=== PATIENT | female | born 2000 | race Two or more races ===

== ENCOUNTER 2024-04-02 21:53 | Emergency (ER) | payer MEDICAID, OTHER ==
[~2024-04-02] VITALS: Ht 162.6 cm; Wt 72.0 kg
[2024-04-02] MEDS: SODIUM CHLORIDE 0.9% 1,000 ML IVB ONE (22:15)
--- NOTE | 2024-04-02 22:20 | ED.PDOC ---
Altered Mental Status HPI Comments 23 year old female came to ER due to alcohol intoxication. Patient was dropped off in front of the ER, intoxicated with alcohol and actively vomiting. No further information could be taken from her at this time. Chief Complaint: ETOH Time Seen by MD: 22:19 Reviewed Notes: Nurses Notes Allergies: Coded Allergies: NO KNOWN ALLERGIES (Unverified , 04/02/24) Information Source: Patient Mode of Arrival: Wheelchair Severity: Unable to Care for Self Timing: Minutes Duration: Since onset Quality: Decreased Alertness, Change in Behavior, Confusion Recent: Medication/Drug Abuse, None Past Medical History PAST MEDICAL HISTORY: Pt Confused Surgical History: Pt Confused [employer]ELOP[employer] MANAGER History: Pt Confused Family History Family History: Pt Confused Social History Smoker: Pt Confused Alcohol: Heavy Drugs: Pt Confused Lives In: Pt Confused Unable to Obtain due to: Altered Mental Status, Other (intoxicated with alcohol) Physical Exam General Appearance: No Apparent Distress, Normal HEENT: Normal ENT Inspection, Pharynx Normal, TMs Normal Neck: Full Range of Motion, Non-Tender, Normal, Normal Inspection Respiratory: Chest Non-Tender, Lungs Clear, No Accessory Muscle Use, No Respiratory Distress, Normal Breath Sounds Cardiovascular: No Edema, No JVD, No Murmur, No Gallop, Normal Peripheral Pulses, Regular Rate/Rhythm Breast Exam: Deferred Gastrointestinal: No Organomegaly, Non Tender, No Pulsatile Mass, Normal Bowel Sounds, Soft Genitalia: Deferred Pelvic: Deferred Rectal: Deferred Extremities: No calf tenderness, Normal capillary refill, Normal inspection, Normal range of motion, Non-tender, No pedal edema Musculoskeletal : Apperance: Normal Neurologic: Alert, lifestyle block farmer II-XII nml as Tested, No Motor Deficits, Normal Affect, Normal Mood, No Sensory Deficits Cerebellar Function: Normal Reflexes: Normal Skin: Dry, Normal Color, Warm Lymphatic: No Adenopathy Was a procedure done? Was a procedure done?: No Differential Diagnosis (ALOC) Differential Diagnosis: Encephalopathy, Drug Overdose, ETOH Intoxication X-Ray, Labs, Meds, VS Vital Signs Date Time Temp Pulse Resp B/P (MAP) Pulse Ox O2 Delivery O2 Flow Rate FiO2 04/03/24 00:01 93 22 97 Room Air* 0 21 04/02/24 23:13 98.8 93 22 113/76 (88) 97 98.8 04/02/24 21:55 97.2 95 16 110/55 (73) 99 Lab Test 04/02/24 22:20 Range/Units White Blood Count 12.7 H 4.4-10.8 10^3/uL Red Blood Count 4.89 4.0-5.20 10^6/uL Hemoglobin 15.5 12.2-16.2 g/dL Hematocrit 46.2 H 36.0-46.0 % Mean Corpuscular Volume 94.3 80.0-100.0 fL Mean Corpuscular Hemoglobin 31.6 28.0-32.0 pg Mean Corpuscular Hemoglobin Concent 33.5 32.0-36.0 g/dL Red Cell Distribution Width 14.1 11.8-14.3 % Platelet Count 303 140-450 10^3/uL Mean Platelet Volume 8.4 6.9-10.8 fL Neutrophils (%) (Auto) 42.2 37.0-80.0 % Lymphocytes (%) (Auto) 42.9 10.0-50.0 % Monocytes (%) (Auto) 7.2 0.0-12.0 % Eosinophils (%) (Auto) 6.1 0.0-7.0 % Basophils (%) (Auto) 1.6 0.0-2.0 % Neutrophils # (Auto) 5.4 1.6-8.6 10 ^3/uL Lymphocytes # (Auto) 5.5 H 0.4-5.4 10 ^3/uL Monocytes # (Auto) 0.9 0-1.3 10 ^3/uL Eosinophils # (Auto) 0.8 0-0.8 10 ^3/uL Basophils # (Auto) 0.2 0-0.2 10 ^3/uL Nucleated Red Blood Cells 0.1 % Sodium Level 141 136-145 mmol/L Potassium Level 4.0 3.5-5.1 mmol/L Chloride Level 108 H 98-107 mmol/L Carbon Dioxide Level 18 L 20-31 mmol/L Anion Gap 15 5-15 Blood Urea Nitrogen 10 9-23 mg/dL Creatinine 0.91 0.550-1.02 mg/dL Glomerular Filtration Rate Calc 91 >90 mL/min BUN/Creatinine Ratio Pending Serum Glucose 85 74-106 mg/dL Calcium Level 9.4 8.7-10.4 mg/dL Magnesium Level 2.6 1.6-2.6 mg/dL Total Bilirubin 0.6 0.2-1.0 mg/dL Aspartate Amino Transferase (AST) 51 H 13-40 U/L Alanine Aminotransferase (ALT) 36 7-40 U/L Alkaline Phosphatase 45 L 46-116 U/L Total Protein 8.0 5.7-8.2 g/dL Albumin 5.0 H 3.2-4.8 g/dL Beta HCG, Quantitative 1.5 1.5-4.2 mIU/mL Plasma/Serum Blood Alcohol 315.6 H <10 mg/dL Current Medications Medications (Trade) Dose Ordered Sig/Iris Route Start Time Stop Time Status Last Admin Sodium Chloride 1,000 ml @ 1,000 mls/hr Q1H ONCE IVB 04/02/24 22:15 04/02/24 23:14 DC 04/02/24 22:15 Ondansetron HCl (Zofran) 4 mg ONCE ONCE IV 04/02/24 22:15 04/02/24 22:16 DC 04/02/24 23:08 Time of 1ST Reevaluation: 22:15 Reevaluation 1ST: Unchanged Time of 2ND Reevaluation: 00:20 (Patient wide awake, talking loudly, ambulatory with steady gait, GCS 15) Reevaluation 2ND: Improved Patient Education/Counseling: Diagnosis, Treatment, Other (patient intoxicared with alcohol) Family Education/Counseling: No Family Present Departure 1 Departure Time of Disposition: 00:52 Impression: Primary Impression: Alteration consciousness Additional Impression: Acute alcohol intoxication Disposition: 01 HOME / SELF CARE / HOMELESS Condition: Stable Discharged With: Self, Relative Critical Care Note Critical Care Time?: No Stability Stability form required: No Heart Score Heart Score: Heart Score Response (Comments) Value History N/A 0 EKG N/A 0 Age N/A 0 Risk Factors N/A 0 Troponin N/A 0 Total 0 I personally scribed for DAVEY SILVA MD ([email or web address]) on 04/02/24 at 22:20. Electronically submitted by Jordy Vieira ([facility]). DAVEY SILVA MD Apr 02, 2024 22:20
[2024-04-02 22:56] LABS: Basophils # (auto) 0.2 10 ^3/uL (0-0.2); Basophils % (auto) 1.6 % (0.0-2.0); Eosinophils # (auto) 0.8 10 ^3/uL (0-0.8); Eosinophils % (auto) 6.1 % (0.0-7.0); Hematocrit 46.2 % (36.0-46.0); Hemoglobin 15.5 g/dL (12.2-16.2); Lymphocytes # (auto) 5.5 10 ^3/uL (0.4-5.4); Lymphocytes % (auto) 42.9 % (10.0-50.0); Mean Corpuscular Hemoglobin 31.6 pg (28.0-32.0); Mean Corpuscular Hgb Conc. 33.5 g/dL (32.0-36.0); Mean Corpuscular Volume 94.3 fL (80.0-100.0); Monocytes # (auto) 0.9 10 ^3/uL (0-1.3); Monocytes % (auto) 7.2 % (0.0-12.0); Neutrophils # (auto) 5.4 10 ^3/uL (1.6-8.6); Neutrophils % (auto) 42.2 % (37.0-80.0); Nucleated Red Blood Cells % 0.1 %; Platelet Count (auto) 303 10^3/uL (140-450); Red Blood Cells 4.89 10^6/uL (4.0-5.20); Red Cell Distribution Width 14.1 % (11.8-14.3); White Blood Cell 12.7 10^3/uL (4.4-10.8)
[2024-04-02 22:57] LABS: Alkaline Phosphatase 45 U/L (46-116); Anion Gap 15 (5-15); Aspartate Aminotransferase 51 U/L (13-40); Calcium 9.4 mg/dL (8.7-10.4); Carbon Dioxide 18 mmol/L (20-31); Chloride 108 mmol/L (98-107); Glucose 85 mg/dL (74-106); Magnesium 2.6 mg/dL (1.6-2.6); Sodium 141 mmol/L (136-145)
[2024-04-02 22:58] LABS: Bilirubin, Total 0.6 mg/dL (0.2-1.0)
[2024-04-02] MEDS: ONDANSETRON HCL 4 MG/2 ML VIAL IV ONE (23:08)
[2024-04-02 23:13] VITALS: BP 113/76; TEMP 98.8
[2024-04-02 23:39] LABS: Alanine Aminotransferase 36 U/L (7-40)
--- NOTE | 2024-04-02 23:58 | DVH ---
EXAM: CT HEAD WITHOUT CONTRAST INDICATION: ALOC TECHNIQUE: CT of the head without intravenous contrast. Radiation Dose : 1. Head: CT Dose: CTDI volume is 56 mGy. Dose-length product is 994 mGy*cm The dose indicators for CT are the volume Computed Tomography (CT) Dose Index (CTDIvol) and the Dose Length Product (DLP), and are measured in units of mGy and mGy-cm, respectively. These indicators are not patient dose, but values generated from the CT scanner acquisition factors. The report includes radiation exposure data for exposures received during this examination. COMPARISON: None FINDINGS: There is no evidence of acute intracranial hemorrhage, extra-axial collection, mass effect, midline s hift, herniation or hydrocephalus. The ventricles, sulci and cisterns are age appropriate. The hernandez-white differentiation is intact. Patchy periventricular and subcortical white matter hypoattenuation is nonspecific but may be related to small vessel ischemic disease. The visualized paranasal sinuses and mastoid air cells are clear. The surrounding soft tissues and osseous structures are unremarkable. IMPRESSION: 1. No acute intracranial abnormality. Radiation optimization: All CT scans at this facility use at least one of these dose optimization maribel hniques: automated exposure control mA and/or kV adjustment per patient size (includes targeted exam s where dose is matched to clinical indication) or iterative reconstruction.
[2024-04-03 00:01] VITALS: PULSE 93; RESP 22; O2SAT 97
[2024-04-03 00:18] LABS: Blood Alcohol 315.6 mg/dL (<10)
[2024-04-03 00:51] LABS: Blood Urea Nitrogen 10 mg/dL (9-23)
== END 2024-04-03 00:35 | disposition home or self-care (01) ==
LOC: ER 22:00 → EDBD 22:00 → ER 04-03 00:35
DX: R41.82 Altered mental status, unspecified (principal); R10.2 Pelvic and perineal pain; F10.129 Alcohol abuse with intoxication, unspecified; F17.200 Nicotine dependence, unspecified, uncomplicated; Z79.899 Other long term (current) drug therapy
CPT/HCPCS: 36415; 70450; 80053; 80320; 83735; 84702; 85025; 96361; 96374; 99285; J2405; J7030